=== PATIENT | female | born 1990 | race African-American/Black ===

== ENCOUNTER 2025-09-17 14:31 | Emergency (ER) | payer BC ==
[2025-09-17 15:18] LABS: GLUCOSE,URINE NEGATIVE (NEGATIVE); OCCULT BLOOD,URINE LARGE (NEGATIVE)
[2025-09-17 15:32] LABS: APPEARANCE,URINE HAZY
[2025-09-17 15:35] LABS: SQUAMOUS EPITHELIAL CELLS,UR MODERATE
== END 2025-09-17 16:57 | disposition left against medical advice (07) ==
LOC: MW.ED 14:31
DX: O99.891 Other specified diseases and conditions complicating pregnancy (principal); R10.31 Right lower quadrant pain; R10.32 Left lower quadrant pain; O23.90 Unspecified genitourinary tract infection in pregnancy, unspecified trimester; R82.71 Bacteriuria; Z3A.00 Weeks of gestation of pregnancy not specified; Z53.29 Procedure and treatment not carried out because of patient's decision for other reasons
CPT/HCPCS: 76801; 76801-26; 76817; 76817-26; 81001; 81025; 99284